=== PATIENT | female | born 1985 | race Caucasian/White ===

== ENCOUNTER 2016-10-13 04:15 | Emergency (ER) | payer MEDICAID ==
[~2016-10-13] VITALS: Ht 165.1 cm; Wt 106.3 kg
[2016-10-13 04:25] VITALS: BP 122/83
--- NOTE | 2016-10-13 04:46 | NUR ---
Patient to bed 04.
[2016-10-13] MEDS ORDERED: IBUPROFEN 800 MG TAB PO ONE (04:55)
--- NOTE | 2016-10-13 05:24 | NUR ---
PATIENT PRESENTS TO ED WITH C/O LOWER BACK PAIN . PT DENIES N/V/D; SKIN IS PINK/WARM/DRY; AAOX4 WITH EVEN AND STEADY GAIT; LUNGS CLEAR BL; HR EVEN AND REGULAR; PT DENIES ANY FEVER, CP, SOB, OR COUGH AT THIS TIME; PATIENT STATES PAIN OF 7/10 AT THIS TIME; VSS; PATIENT POSITIONED FOR COMFORT; HOB ELEVATED; BEDRAILS UP X2; BED DOWN. ER MD MADE AWARE OF PT STATUS.
[2016-10-13 05:45] VITALS: BP 122/83
--- NOTE | 2016-10-13 05:45 | NUR ---
Patient discharged with v/s stable. Written and verbal after care instructions given and explained. Patient verbalized understanding. Ambulatory with steady gait. All questions addressed prior to discharge. Advised to follow up with PMD.
== END 2016-10-13 05:45 | disposition home or self-care (01) ==
LOC: MED 04:15
DX: M54.5 Low back pain (principal); J45.909 Unspecified asthma, uncomplicated
CPT/HCPCS: 81002; 81025; 99283

== ENCOUNTER 2017-04-27 11:23 | Emergency (ER) | payer MEDICAID ==
[~2017-04-27] VITALS: Ht 160 cm; Wt 108.9 kg
[2017-04-27 11:25] VITALS: BP 115/71
[2017-04-27] MEDS ORDERED: KETOROLAC 30 MG/ML VIAL IM ONE (11:45)
[2017-04-27 14:15] VITALS: BP 125/70
--- NOTE | 2017-04-27 14:16 | NUR ---
PT STATED FEELING BETTER PAIN SCALE 2/10 UPON D/C HOME ALL PAPER WORK UNDERSTOOD AND GIVEN TO PT WELL PRESCRIPTIONS NO S/S OF DISTRESS UPON D/C HOME.
== END 2017-04-27 14:16 | disposition home or self-care (01) ==
LOC: MED 11:23
DX: R10.2 Pelvic and perineal pain (principal); J45.909 Unspecified asthma, uncomplicated
CPT/HCPCS: 76830; 96372; 99284; J1885; Q0092; 81025

== ENCOUNTER 2018-05-31 23:29 | Emergency (ER) | payer MEDICAID ==
[~2018-05-31] VITALS: Ht 152.4 cm; Wt 118.8 kg
[2018-05-31 23:35] VITALS: BP 112/76
--- NOTE | 2018-05-31 23:35 | NUR ---
TO BED # 07 AMBULATORY, REPORT GIVEN TO TOM GARCIA
--- NOTE | 2018-05-31 23:54 | NUR ---
Dr. Hurt evaluating patient at bedside.
[2018-06-01] MEDS ORDERED: IBUPROFEN 800 MG TAB PO ONE
[2018-06-01 00:46] VITALS: BP 122/75
== END 2018-06-01 00:46 | disposition home or self-care (01) ==
LOC: MED 23:29
DX: M54.12 Radiculopathy, cervical region (principal); J45.909 Unspecified asthma, uncomplicated
CPT/HCPCS: 81002; 81025; 99282

== ENCOUNTER 2018-08-18 01:10 | Emergency (ER) | payer MEDICAID ==
[~2018-08-18] VITALS: Ht 165.1 cm; Wt 117.9 kg
[2018-08-18 01:26] VITALS: BP 118/75
--- NOTE | 2018-08-18 01:30 | NUR ---
PT TAKEN TO BED 10
--- NOTE | 2018-08-18 01:38 | NUR ---
33/F presents to ED with complaints of vaginal bleeding that started last , x1 week ago. Patient states her LMP was 07/26/18, normally pt states her menstrual cycle last 3 days. Pt also states she is bleeding large clots. Pt denies at this time. Pt c/o mild cramping to lower abdomen 04/10.
[2018-08-18 02:02] LABS: BASOPHILS % (AUTO) 0.2 % (0.0-2.0); EOSINOPHILS # (AUTO) 0.1 K/uL (0-0.4); HEMOGLOBIN 11.3 g/dL (12.0-16.0); LYMPHOCYTES # (AUTO) 2.6 K/uL (2.5-16.5); LYMPHOCYTES % (AUTO) 28.7 % (20.5-51.1); MEAN CORPUSCULAR HEMOGLOBIN 27 pg (27-31); MEAN CORPUSCULAR HGB CONC 32 g/dL (33-37); MEAN CORPUSCULAR VOLUME 82.9 fL (80-94); MONOCYTES # (AUTO) 0.6 K/uL (0.8-1.0); MONOCYTES % (AUTO) 6.8 % (1.7-9.3); NEUTROPHILS # (AUTO) 5.8 K/uL (1.8-7.7); NEUTROPHILS % (AUTO) 63.3 % (42.2-75.2); PLATELET COUNT (AUTO) 220 K/uL (140-450); RED BLOOD CELL COUNT(AUTO) 4.22 MIL/uL (4.20-5.40); RED CELL DISTRIBUTION WIDTH 15.8 % (11.6-13.7); WHITE BLOOD COUNT (AUTO) 9.2 K/uL (4.8-10.8)
--- NOTE | 2018-08-18 02:16 | NUR ---
Ultrasound at bedside.
[2018-08-18 04:09] VITALS: BP 110/80
--- NOTE | 2018-08-18 04:09 | NUR ---
Patient discharged with v/s stable. Written and verbal after care instructions given and explained in khmer by myself. Patient alert, oriented and verbalized understanding of instructions. Ambulatory with steady gait. All questions addressed prior to discharge. ID band removed. Patient advised to follow up with OBGYN. Copies of US and lab results provided. Rx of CVS and Macrobid given. Patient educated on indication of medication including possible reaction and side effects. Opportunity to ask questions provided and answered.
== END 2018-08-18 04:09 | disposition home or self-care (01) ==
LOC: MED 01:10
DX: O20.0 Threatened abortion (principal); O23.41 Unspecified infection of urinary tract in pregnancy, first trimester; J45.909 Unspecified asthma, uncomplicated; Z3A.01 Less than 8 weeks gestation of pregnancy
CPT/HCPCS: 36415; 76817; 81002; 81025; 84702; 85025; 86900; 86901; 99284; Q0092

== ENCOUNTER 2020-05-07 12:56 | Emergency (ER) | payer MEDICAID ==
[~2020-05-07] VITALS: Ht 160 cm; Wt 118.4 kg
[2020-05-07 13:11] VITALS: BP 128/82
[2020-05-07] MEDS ORDERED: ACETAMINOPHEN 325 MG TAB PO ONE (13:40)
[2020-05-07 14:19] LABS: BASOPHILS % (AUTO) 0.2 % (0.0-2.0); EOSINOPHILS # (AUTO) 0.3 K/uL (0-0.4); EOSINOPHILS % (AUTO) 2.8 % (0.0-4.0); HEMATOCRIT 36.7 % (36-48); HEMOGLOBIN 12.1 g/dL (12.0-16.0); LYMPHOCYTES # (AUTO) 2.3 K/uL (2.5-16.5); LYMPHOCYTES % (AUTO) 23.1 % (20.5-51.1); MEAN CORPUSCULAR HEMOGLOBIN 27 pg (27-31); MEAN CORPUSCULAR HGB CONC 33 g/dL (33-37); MEAN CORPUSCULAR VOLUME 82.4 fL (80-94); MONOCYTES # (AUTO) 0.7 K/uL (0.8-1.0); MONOCYTES % (AUTO) 6.5 % (1.7-9.3); NEUTROPHILS # (AUTO) 6.8 K/uL (1.8-7.7); NEUTROPHILS % (AUTO) 67.4 % (42.2-75.2); PLATELET COUNT (AUTO) 254 K/uL (140-450); RED BLOOD CELL COUNT(AUTO) 4.45 MIL/uL (4.20-5.40); RED CELL DISTRIBUTION WIDTH 15.3 % (11.6-13.7); WHITE BLOOD COUNT (AUTO) 10.1 K/uL (4.8-10.8)
[2020-05-07 15:19] LABS: APPEARANCE,URINE CLEAR (CLEAR); BILIRUBIN,URINE NEGATIVE (NEGATIVE); BLOOD, URINE TRACE-I (NEGATIVE); COLOR,URINE YELLOW (YELLOW); LEUKOCYTE ESTERASE ,URINE NEGATIVE (NEGATIVE); NITRITE, URINE NEGATIVE (NEGATIVE); UGLUCOSE NEGATIVE (NEGATIVE)
[2020-05-07 15:26] LABS: ALBUMIN 3.1 g/dL (3.4-5.0); ANION GAP 12.5 (8-16); CARBON DIOXIDE 27.3 mmol/L (21-32); CREATININE 0.7 mg/dL (0.6-1.3); POTASSIUM 3.8 mmol/L (3.5-5.1); TOTAL BILIRUBIN 0.1 mg/dL (0.0-1.0)
[2020-05-07] MEDS ORDERED: IBUP-2213 PO (15:37)
[2020-05-07 15:52] LABS: WBC,URINE 0-5 /HPF (0-5)
== END 2020-05-07 16:09 | disposition home or self-care (01) ==
LOC: MED 12:56
DX: N83.202 Unspecified ovarian cyst, left side (principal); N83.201 Unspecified ovarian cyst, right side; J45.909 Unspecified asthma, uncomplicated; Z79.899 Other long term (current) drug therapy; Z98.890 Other specified postprocedural states
CPT/HCPCS: 36415; 76856; 80053; 81001; 81025; 83690; 84703; 85025; 99284

== ENCOUNTER 2020-09-23 16:52 | Emergency (ER) | payer MEDICAID ==
[~2020-09-23] VITALS: Ht 162.6 cm; Wt 86.2 kg
[~2020-09-23 16:52] MED LIST: IBUP-2213 PO
[2020-09-23 16:57] VITALS: BP 125/73
--- NOTE | 2020-09-23 17:27 | NUR ---
Patient ambulated to bed 2. LEIDY Williamson is evaluating the patient at bedside.
--- NOTE | 2020-09-23 17:32 | NUR ---
35 Y/O FEMALE C/O SOB X 4 DAYS, DRY NON-PRODUCTIVE COUGH WITH HEADACHE. PT DENIES CHEST PAIN. PT DENIES N/V/D. PT DENIES FEVER/CHILLS. LABORED BREATHING NOTED SYMMETRICAL EVEN, LUNG SOUNDS PRESENT AUDIBLE WHEEZING DURING INSPIRATORY AND EXPIRATORY, SP02 95% ON RA. PMH: ASTHMA, DM NKA
--- NOTE | 2020-09-23 17:34 | NUR ---
LEIDY HARRIS AT BEDSIDE EVALUATING PT
[2020-09-23] MEDS ORDERED: ALBUTEROL SULFATE/IPRATROPIU 3 ML SOL IH ONE (17:40)
--- NOTE | 2020-09-23 17:54 | NUR ---
RT at pt bedside.
[2020-09-23] MEDS ORDERED: PRED20TA5 PO (17:57)
[2020-09-23] MEDS ORDERED: ALBU0.0912 IH (17:57)
--- NOTE | 2020-09-23 18:37 | NUR ---
PT MOVED TO CHAIR A
--- NOTE | 2020-09-23 18:52 | NUR ---
Patient discharged with v/s stable. Written and verbal after care instructions ABOUT MEDICATIONS AND ASTHMA given and explained. Patient alert, oriented and verbalized understanding of instructions. Ambulatory with steady gait. All questions addressed prior to discharge. ID band removed. Patient advised to follow up with PMD. Rx of ALBUTEROL SULFATE AND PREDNISONE given. Patient educated on indication of medication including possible reaction and side effects. Opportunity to ask questions provided and answered.
== END 2020-09-23 18:51 | disposition home or self-care (01) ==
LOC: MED 16:52
DX: J45.901 Unspecified asthma with (acute) exacerbation (principal)
CPT/HCPCS: 71045; 94640; 99283

== ENCOUNTER 2020-10-10 15:08 | Emergency (ER) | payer MEDICAID ==
[~2020-10-10] VITALS: Ht 154.9 cm; Wt 108.9 kg
[~2020-10-10 15:08] MED LIST changes: +ALBU0.0912 IH; +PRED20TA5 PO
[2020-10-10 15:20] VITALS: BP 111/72
--- NOTE | 2020-10-10 15:48 | NUR ---
35 Y/O FEMALE C/O SOB, DIZZINESS, +N/V AND RIGHT EAR PAIN 5/10 X1WEEK. PT STATES SHE APPT WITH PCP 10/14/20 BUT SYMPTOMS HAVE WORSENED TODAY. DENIES FEVER/CHILLS. DENIES SYNCOPE. PMH: GUNNER PATE
[2020-10-10] MEDS ORDERED: AMOX500C25 PO (16:17)
[2020-10-10] MEDS ORDERED: NAPR-54 PO (16:17)
--- NOTE | 2020-10-10 16:24 | NUR ---
Patient discharged with v/s stable. Written and verbal after care instructions given and explained. Patient alert, oriented and verbalized understanding of instructions. Ambulatory with steady gait. All questions addressed prior to discharge. ID band removed. Patient advised to follow up with PMD. Rx of Amoxicillin and Naproxen given. Patient educated on indication of medication including possible reaction and side effects. Opportunity to ask questions provided and answered.
== END 2020-10-10 16:24 | disposition home or self-care (01) ==
LOC: MED 15:08
DX: H66.91 Otitis media, unspecified, right ear (principal); R09.81 Nasal congestion; R42 Dizziness and giddiness; J45.909 Unspecified asthma, uncomplicated; E11.9 Type 2 diabetes mellitus without complications; Z79.899 Other long term (current) drug therapy
CPT/HCPCS: 99283

== ENCOUNTER 2022-08-22 19:55 | Emergency (ER) | payer MEDICAID ==
[~2022-08-22] VITALS: Ht 165.1 cm; Wt 116.1 kg
[~2022-08-22 19:55] MED LIST changes: +AMOX500C25 PO; +NAPR-54 PO
[2022-08-22 20:14] VITALS: BP 128/93; PULSE 95; RESP 20; TEMP 98; O2SAT 95
--- NOTE | 2022-08-22 20:24 | NUR ---
PT TAKEN TO BED 5
--- NOTE | 2022-08-22 20:31 | NUR ---
Dr. Pickering examining patient.
[2022-08-22] MEDS ORDERED: LIDOCAINE 5% 1 EA PATCH TP SCH (20:45)
[2022-08-22] MEDS ORDERED: KETOROLAC 30 MG/ML VIAL IM ONE (20:45)
--- NOTE | 2022-08-22 20:58 | NUR ---
X-Ray at bedside.
[2022-08-22 21:09] LABS: BASOPHILS # (AUTO) 0.1 K/uL (0.00-0.22); BASOPHILS % (AUTO) 0.6 % (0.0-2.0); EOSINOPHILS % (AUTO) 0.2 % (0.0-4.0); HEMATOCRIT 37.2 % (36-48); LYMPHOCYTES # (AUTO) 2.2 K/uL (2.5-16.5); LYMPHOCYTES % (AUTO) 19.1 % (20.5-51.1); MEAN CORPUSCULAR HEMOGLOBIN 26 pg (27-31); MEAN CORPUSCULAR HGB CONC 32 g/dL (33-37); MEAN CORPUSCULAR VOLUME 79.5 fL (80-94); MONOCYTES # (AUTO) 0.6 K/uL (0.8-1.0); NEUTROPHILS # (AUTO) 8.6 K/uL (1.8-7.7); NEUTROPHILS % (AUTO) 75.1 % (42.2-75.2); PLATELET COUNT (AUTO) 261 K/uL (140-450); RED BLOOD CELL COUNT(AUTO) 4.68 MIL/uL (4.20-5.40); RED CELL DISTRIBUTION WIDTH 15.6 % (11.6-13.7); WHITE BLOOD COUNT (AUTO) 11.5 K/uL (4.8-10.8)
[2022-08-22 21:39] LABS: ALBUMIN 3.4 g/dL (3.4-5.0); ANION GAP 16.3 (8-16); CARBON DIOXIDE 23.6 mmol/L (21-32); CREATININE 0.8 mg/dL (0.6-1.3); POTASSIUM 3.9 mmol/L (3.5-5.1); TOTAL BILIRUBIN 0.2 mg/dL (0.0-1.0)
--- NOTE | 2022-08-22 21:45 | NUR ---
X-Ray at bedside.
[2022-08-22] MEDS ORDERED: NAPR-54 PO (22:57)
[2022-08-22] MEDS ORDERED: LID5T TP (22:57)
[2022-08-22] MEDS ORDERED: ACET-10509 PO (22:58)
[2022-08-22 23:30] VITALS: BP 126/70; PULSE 88; RESP 19; TEMP 97.6; O2SAT 99
--- NOTE | 2022-08-22 23:30 | NUR ---
Patient discharged with v/s stable. Written and verbal after care instructions given and explained. Patient alert, oriented and verbalized understanding of instructions. Ambulatory with steady gait. All questions addressed prior to discharge. ID band removed. Patient advised to follow up with PMD. Rx of Tylenol, Lidocaine patch, Naproxen given. Patient educated on indication of medication including possible reaction and side effects. Opportunity to ask questions provided and answered.
== END 2022-08-22 23:30 | disposition home or self-care (01) ==
LOC: MED 19:55
DX: M54.12 Radiculopathy, cervical region (principal); R07.89 Other chest pain; E11.9 Type 2 diabetes mellitus without complications; J45.909 Unspecified asthma, uncomplicated; Z98.890 Other specified postprocedural states; Z79.899 Other long term (current) drug therapy
CPT/HCPCS: 36415; 71045; 73030; 80053; 82550; 83880; 84484; 85025; 93005; 96372; 99285; J1885; Q0092

== ENCOUNTER 2022-11-20 23:10 | Emergency (ER) | payer MEDICAID ==
[~2022-11-20] VITALS: Ht 165.1 cm; Wt 115.2 kg
[~2022-11-20 23:10] MED LIST changes: +ACET-10509 PO; +LID5T TP
[2022-11-20 23:12] VITALS: BP 131/67; PULSE 84; RESP 16; TEMP 97.4; O2SAT 99
[2022-11-20] MEDS ORDERED: IBUPROFEN 600 MG TAB PO ONE (23:45)
[2022-11-20] MEDS ORDERED: ALUMINUM HYD/MAG/SIMETHICONE 30 ML UDC PO ONE (23:45)
[2022-11-20] MEDS ORDERED: ACETAMINOPHEN EXTRA STRENGTH 500 MG TAB PO ONE (23:45)
[2022-11-21 00:04] LABS: APPEARANCE,URINE CLEAR (CLEAR); BASOPHILS % (AUTO) 0.2 % (0.0-2.0); BILIRUBIN,URINE NEGATIVE (NEGATIVE); BLOOD, URINE NEGATIVE (NEGATIVE); COLOR,URINE YELLOW (YELLOW); EOSINOPHILS # (AUTO) 0.4 K/uL (0-0.4); EOSINOPHILS % (AUTO) 3.1 % (0.0-4.0); HEMATOCRIT 36.2 % (36-48); HEMOGLOBIN 11.7 g/dL (12.0-16.0); LEUKOCYTE ESTERASE ,URINE TRACE (NEGATIVE); LYMPHOCYTES # (AUTO) 3.7 K/uL (2.5-16.5); LYMPHOCYTES % (AUTO) 32.7 % (20.5-51.1); MEAN CORPUSCULAR HEMOGLOBIN 26 pg (27-31); MEAN CORPUSCULAR HGB CONC 32 g/dL (33-37); MEAN CORPUSCULAR VOLUME 80.1 fL (80-94); MONOCYTES # (AUTO) 0.6 K/uL (0.8-1.0); MONOCYTES % (AUTO) 5.4 % (1.7-9.3); NEUTROPHILS # (AUTO) 6.7 K/uL (1.8-7.7); NEUTROPHILS % (AUTO) 58.6 % (42.2-75.2); NITRITE, URINE NEGATIVE (NEGATIVE); PLATELET COUNT (AUTO) 264 K/uL (140-450); PROTEIN,URINE NEGATIVE (NEGATIVE); RED BLOOD CELL COUNT(AUTO) 4.52 MIL/uL (4.20-5.40); RED CELL DISTRIBUTION WIDTH 15.7 % (11.6-13.7); UGLUCOSE NEGATIVE (NEGATIVE); UROBILINOGEN,URINE 0.2 EU/dL (0.2 - 1); WHITE BLOOD COUNT (AUTO) 11.4 K/uL (4.8-10.8)
[2022-11-21 00:15] LABS: BACTERIA,URINE 3+ /HPF (None Seen); RBC,URINE 0-5 /HPF (0-5); SQUAMOUS EPITHELIAL CELL,UR 4-10 (MOD) /LPF (0-3 (FEW))
[2022-11-21 00:38] LABS: ALBUMIN 3.2 g/dL (3.4-5.0); ANION GAP 9.5 (8-16); CALCIUM 8.8 mg/dL (8.5-10.1); CARBON DIOXIDE 28.4 mmol/L (21-32); CREATININE 0.8 mg/dL (0.6-1.3); POTASSIUM 3.9 mmol/L (3.5-5.1); TOTAL BILIRUBIN 0.3 mg/dL (0.0-1.0); TOTAL PROTEIN, SERUM 6.8 g/dL (6.4-8.2)
[2022-11-21] MEDS ORDERED: ACET-2619 PO (01:12)
[2022-11-21] MEDS ORDERED: MAG-27 PO (01:12)
== END 2022-11-21 01:18 | disposition home or self-care (01) ==
LOC: MED 23:10
DX: R10.11 Right upper quadrant pain (principal); K76.0 Fatty (change of) liver, not elsewhere classified; J45.909 Unspecified asthma, uncomplicated; E11.9 Type 2 diabetes mellitus without complications; Z79.899 Other long term (current) drug therapy; Z98.890 Other specified postprocedural states
CPT/HCPCS: 36415; 76705; 80053; 81001; 81025; 83690; 85025; 87086; 99284; Q0092

== ENCOUNTER 2023-07-13 14:47 | Emergency (ER) | payer MEDICAID, OTHER ==
[~2023-07-13] VITALS: Ht 165.1 cm; Wt 113.4 kg
[~2023-07-13 14:47] MED LIST changes: +ACET-2619 PO; +MAG-27 PO; +NAPR-337 PO; -NAPR-54 PO
[2023-07-13 14:52] VITALS: BP 121/79; PULSE 69; RESP 18; TEMP 97.3; O2SAT 97
[2023-07-13 15:41] LABS: BILIRUBIN,URINE NEGATIVE (NEGATIVE); BLOOD, URINE 3+ (NEGATIVE); LEUKOCYTE ESTERASE ,URINE TRACE (NEGATIVE); NITRITE, URINE NEGATIVE (NEGATIVE); PH,URINE 7.5 (5.0-9.0); PROTEIN,URINE TRACE (NEGATIVE); UGLUCOSE NEGATIVE (NEGATIVE); UROBILINOGEN,URINE 0.2 EU/dL (0.2 - 1)
[2023-07-13] MEDS: KETOROLAC 30 MG/ML VIAL IM ONE (16:05)
[2023-07-13 16:09] LABS: APPEARANCE,URINE HAZY (CLEAR); COLOR,URINE ORANGE (YELLOW)
[2023-07-13 16:13] LABS: RBC,URINE >100 /HPF (0-5)
[2023-07-13 16:14] LABS: BACTERIA,URINE OCCASSIONAL /HPF (None Seen); MUCUS,URINE None Seen /LPF (None Seen); SQUAMOUS EPITHELIAL CELL,UR 0-3 (FEW) /LPF (0-3 (FEW)); WBC,URINE 0-5 /HPF (0-5); YEAST,URINE None Seen /HPF (None Seen)
[2023-07-13 16:29] LABS: BASOPHILS # (AUTO) 0.1 K/uL (0.00-0.22); BASOPHILS % (AUTO) 0.5 % (0.0-2.0); EOSINOPHILS # (AUTO) 0.2 K/uL (0-0.4); EOSINOPHILS % (AUTO) 2.2 % (0.0-4.0); HEMATOCRIT 38.5 % (36-48); HEMOGLOBIN 12.7 g/dL (12.0-16.0); LYMPHOCYTES # (AUTO) 2.8 K/uL (2.5-16.5); LYMPHOCYTES % (AUTO) 27.1 % (20.5-51.1); MEAN CORPUSCULAR HEMOGLOBIN 27 pg (27-31); MEAN CORPUSCULAR HGB CONC 33 g/dL (33-37); MEAN CORPUSCULAR VOLUME 80.5 fL (80-94); MONOCYTES # (AUTO) 0.6 K/uL (0.8-1.0); MONOCYTES % (AUTO) 6.1 % (1.7-9.3); NEUTROPHILS # (AUTO) 6.5 K/uL (1.8-7.7); NEUTROPHILS % (AUTO) 64.1 % (42.2-75.2); PLATELET COUNT (AUTO) 248 K/uL (140-450); RED BLOOD CELL COUNT(AUTO) 4.79 MIL/uL (4.20-5.40); RED CELL DISTRIBUTION WIDTH 16.1 % (11.6-13.7); WHITE BLOOD COUNT (AUTO) 10.2 K/uL (4.8-10.8)
[2023-07-13 16:42] LABS: ANION GAP 11.6 (8-16); CALCIUM 8.9 mg/dL (8.5-10.1); CARBON DIOXIDE 27.7 mmol/L (21-32); CREATININE 0.8 mg/dL (0.6-1.3); POTASSIUM 4.3 mmol/L (3.5-5.1)
[2023-07-13 16:47] LABS: ALBUMIN 3.2 g/dL (3.4-5.0); BILIRUBIN,DIRECT 0.1 mg/dL (0.0-0.3); TOTAL BILIRUBIN 0.3 mg/dL (0.0-1.0); TOTAL PROTEIN, SERUM 7.2 g/dL (6.4-8.2)
[2023-07-13] MEDS ORDERED: IBUP-2213 PO (18:14)
[2023-07-13] MEDS ORDERED: CEPH250C16 PO (18:14)
[2023-07-13 20:13] VITALS: BP 104/69; PULSE 64; RESP 18; TEMP 97.9; O2SAT 98
== END 2023-07-13 20:13 | disposition home or self-care (01) ==
LOC: MED 14:47
DX: N30.00 Acute cystitis without hematuria (principal); N83.8 Other noninflammatory disorders of ovary, fallopian tube and broad ligament; N83.201 Unspecified ovarian cyst, right side; J45.909 Unspecified asthma, uncomplicated; E11.9 Type 2 diabetes mellitus without complications; Z79.4 Long term (current) use of insulin; Z79.899 Other long term (current) drug therapy
CPT/HCPCS: 36415; 76830; 80048; 80076; 81001; 81025; 83690; 85025; 87210; 96372; 99285; J1885; Q0092